=== PATIENT | male | born 1985 | race Caucasian/White ===

== ENCOUNTER 2019-01-29 18:52 | Emergency (ER) | payer OTHER ==
[~2019-01-29] VITALS: Ht 185.4 cm; Wt 113.6 kg
[2019-01-29 19:12] VITALS: Ht 185.4 cm; Wt 113.6 kg
[2019-01-29] MEDS ORDERED: HYDROCODONE-A1 UDTA2 PO (21:10)
[2019-01-29] MEDS ORDERED: GENTAK3.5 GM RIGHT EYE (21:10)
[2019-01-29 21:20] VITALS: BP 140/87
== END 2019-01-29 21:20 | disposition home or self-care (01) ==
LOC: D.ER 18:52
DX: T15.91XA Foreign body on external eye, part unspecified, right eye, initial encounter (principal); X58.XXXA Exposure to other specified factors, initial encounter